=== PATIENT | female | born 1955 | race Asian ===

== ENCOUNTER → 2021-09-16 | Outpatient (CLI) | payer SELFPAY ==
[2021-09-16 21:08] LABS: BASOPHILS # (AUTO) 0.1 10^3/uL (0.0-0.1); BASOPHILS % (AUTO) 1.4 %; EOSINOPHILS # (AUTO) 0.1 10^3/uL (0.0-0.7); EOSINOPHILS % (AUTO) 1.4 %; HCT - HEMATOCRIT 42.7 % (37.0-47.0); HGB - HEMOGLOBIN 14.1 g/dL (12.0-16.0); LYMPHOCYTES # (AUTO) 1.1 10^3/uL (1.5-3.5); LYMPHOCYTES % (AUTO) 21.9 %; MEAN CORPUSCULAR VOLUME 96.8 fL (81.0-99.0); MONOCYTES # (AUTO) 0.4 10^3/uL (0.0-1.0); MONOCYTES % (AUTO) 7.6 %; NEUTROPHILS # (AUTO) 3.4 10^3/uL (1.5-6.6); NEUTROPHILS % (AUTO) 67.5 %; PLT - PLATELET COUNT 152 10^3/uL (130-450); RED BLOOD COUNT 4.41 10^6/uL (4.20-5.40); RED CELL DISTRIBUTION WIDTH 11.7 % (12.0-15.0)
[2021-09-16 21:19] LABS: ALBUMIN 4.5 g/dL (3.2-5.5); ALBUMIN/GLOBULIN RATIO 1.3 (1.0-2.2); BILIRUBIN,TOTAL 1.1 mg/dL (0.2-1.0); CALCIUM 9.3 mg/dL (8.5-10.3); CREATININE 0.9 mg/dL (0.4-1.0); POTASSIUM 4.2 mmol/L (3.5-5.0)
[2021-09-16 21:35] LABS: THYROID STIMULATING HORMONE 1.76 uIU/mL (0.34-5.60)
== END ==
LOC: LAB.N 08:00
PROVIDERS: ATTEND Family Medicine
DX: I10 Essential (primary) hypertension (principal); H53.9 Unspecified visual disturbance
CPT/HCPCS: 36415; 80053; 84443; 85025; 85651

== ENCOUNTER 2021-10-07 09:42 | Outpatient (CLI) | payer SELFPAY ==
--- NOTE | 2021-10-07 10:09 | XRAY Report ---
PROCEDURE: Chest 2 View X-Ray INDICATIONS: BRONCHITIS TECHNIQUE: 2 view(s) of the chest. COMPARISON: September 03, 2010. FINDINGS: SUPPORT DEVICES: None. LUNGS/PLEURA: Biapical pleural thickening/scarring. Airspace opacity in the left lower lung zone, con cerning for pneumonic infiltrate. Hyperaeration with coarsened interstitial markings. Evidence of ate lectasis. MEDIASTINUM: The cardiomediastinal silhouette is within normal limits. BONES/SOFT TISSUES: No acute abnormality. IMPRESSION: 1.Left lower lung zone airspace opacity, concerning for pneumonic infiltrate. Reviewed by: Abdirashid Ponce MD on 10/07/2021 10:08 AM PDT Approved by: Abdirashid Ponce MD on 10/07/2021 10:08 AM PDT Station ID: [id number]
== END 2021-10-07 23:59 | disposition home or self-care (01) ==
LOC: DI.N 09:42
PROVIDERS: ATTEND Physician Assistant Medical
DX: J40 Bronchitis, not specified as acute or chronic (principal); R91.8 Other nonspecific abnormal finding of lung field
CPT/HCPCS: 71046; U0004

== ENCOUNTER 2022-09-23 23:38 | Emergency (ER) | payer MEDICARE ==
[2022-09-24] MEDS ORDERED: SODIUM CHLORIDE 0.9% 1,000 ML IV STA (00:03)
--- NOTE | 2022-09-24 00:05 | ED Physician Documentation ---
History of Present Illness - Stated complaint Stated Complaint: CHEST PX - Chief complaint Chief Complaint: Cardiac - History obtained from History obtained from: Patient - Additonal information Additional information: The patient comes to the emergency department with chief complaint of palpitations. She states that she has some chronically and sometimes they are once a week and sometimes they are every day. She states that she has been seen for these before and told nobody can find anything wrong. The patient denies any recent illness. The palpitations are not associated with chest pain, sh ortness of breath, or nausea. Sometimes they last for just a few minutes and other times they last for hours. She states currently, she has been feeling as though she is having a fast heart rate for the last 4 hours. No other complaints at this time. The patient does not have any known history of any heart issues, rhythm related or otherwise. No history of diabetes or high blood pressure. No history of thyroid disorder. PD PAST MEDICAL HISTORY - Past Medical History Respiratory: None - Past Surgical History Past Surgical History: No - Present Medications Home Medications: Ambulatory Orders Medication Instructions Recorded Confirmed amLODIPine [Norvasc] 10 mg PO DAILY 09/23/22 09/23/22 Albuterol Sulf [Ventolin Hfa 1 - 2 puffs INH Q4HR PRN 09/24/22 09/24/22 Inhaler] Levothyroxine [Synthroid] 125 mcg PO QDAC #90 tablet 09/24/22 - Allergies Allergies/Adverse Reactions: Allergies Allergy/AdvReac Type Severity Reaction Status Date / Time No Known Drug Allergies Allergy Verified 09/23/22 23:50 - Social History Does the pt smoke?: No Smoking Status: Never smoker Does the pt drink ETOH?: No Does the pt have substance abuse?: No - Immunizations Immunizations are current?: Yes PD ED PE NORMAL - Vitals Vital signs reviewed: Yes - General General: Alert and oriented X 3, No acute distress, Well developed/nourished - HEENT HEENT: Atraumatic, PERRL, EOMI, Moist mucous membranes - Neck Neck: Supple, no meningeal sign, Thyroid normal - Cardiac Cardiac: RRR, No murmur, Strong equal pulses - Respiratory Respiratory: No respiratory distress, Clear bilaterally - Abdomen Abdomen: Soft, Non tender, Non distended - Derm Derm: Normal color, Warm and dry, No rash - Extremities Extremities: No deformity, No edema - Neuro Neuro: Alert and oriented X 3 - Psych Psych: Normal mood, Normal affect Results - Vitals Vitals: Vital Signs - 24 hr 09/23/22 09/24/22 09/24/22 23:40 00:07 01:16 Temperature 36.9 C Heart Rate 94 80 83 Respiratory 16 22 16 Rate Blood Pressure 204/73 H 172/77 H 165/70 H O2 Saturation 100 100 99 Oxygen O2 Source Room air - EKG (time done) 2352 EKG releavant findings:: EKG personally interpreted by author of this note. Relevant findings are: Rate: Rate (enter#) (93) Rhythm: NSR [place]: RAD QRS: LVH Ischemia: Non specific changes Other comments: Other comments (Computer reading states "right and left arm electrode reversal". Electrodes checked and are in proper placement.) Compare to prior EKG: Old EKG unavailable - Labs Labs: Laboratory Tests 09/23/22 09/23/22 09/23/22 23:56 23:56 23:56 WBC 5.8 RBC 4.48 Hgb 13.8 Hct 43.4 MCV 96.9 MCH 30.8 MCHC 31.8 L RDW 12.0 Plt Count 168 MPV 10.0 Neut # (Auto) 2.3 Lymph # (Auto) 2.9 [place] # (Auto) 0.5 Eos # (Auto) 0.1 Baso # (Auto) 0.1 Absolute Nucleated RBC 0.00 Nucleated RBC % 0.0 Sodium 136 Potassium 3.3 L Chloride 95 L Carbon Dioxide 31 Anion Gap 10.0 BUN 17 Creatinine 0.7 Estimated GFR (MDRD) 83 L Glucose 114 H Calcium 9.5 Total Bilirubin 0.4 AST 33 ALT 24 Alkaline Phosphatase 171 H Total Protein 8.6 H Albumin 4.6 Globulin 4.0 Albumin/Globulin Ratio 1.1 Lipase 39 TSH 7.37 H Free T4 Thyroxine (T4) Free T3 pg/mL Total T3 09/23/22 09/23/22 09/23/22 23:56 23:56 23:56 WBC RBC Hgb Hct MCV MCH MCHC RDW Plt Count MPV Neut # (Auto) Lymph # (Auto) [place] # (Auto) Eos # (Auto) Baso # (Auto) Absolute Nucleated RBC Nucleated RBC % Sodium Potassium Chloride Carbon Dioxide Anion Gap BUN Creatinine Estimated GFR (MDRD) Glucose Calcium Total Bilirubin AST ALT Alkaline Phosphatase Total Protein Albumin Globulin Albumin/Globulin Ratio Lipase TSH Free T4 0.86 Thyroxine (T4) 7.49 Free T3 pg/mL 3.57 3.58 Total T3 1.17 PD Medical Decision Making - ED course Complexity details: reviewed old records, reviewed results, re-evaluated patient, considered differential, d/w patient, d/w family ED course: The patient was well-appearing and her heart rate and rhythm were normal. I did work her up with labs including CBC and ER abdominal panel, as well as EKG, all of which were reviewed by me. The patient's labs in general looked pretty good but her TSH was significantly elevated. Although she has a normal sinus rhythm on EKG at this point in time, there is possible that she may be having some minor dysrhythmias from time to time. I will start her on Synthroid. We have discussed the heightened need for establishment with primary care and I have given her a couple of options. The patient understands she should make the soonest possible appointment for follow-up. We have discussed the usual indications for return. Departure - Departure Disposition: 01 Home, Self Care Clinical Impression: Palpitations with regular cardiac rhythm Hypothyroidism Qualifiers: Hypothyroidism type: unspecified Qualified Code(s): E03.9 - Hypothyroidism, unspecified Condition: Stable Instructions: ED Hypothyroidism, ED Palpitations Follow-Up: Neha Goyal ARNP [Provider Admit Priv/Credential] - Brigido Green MD [Provider Admit Priv/Credential] - Prescriptions: Levothyroxine [Synthroid] 125 mcg PO QDAC #90 tablet Comments: Your cardiac monitoring and EKG did not show any abnormal rhythm today. You had a normal heart rate and the rhythm was normal also. Your laboratory studies overall looked good but you were found to have indication of hypothyroidism or "low thyroid". Thyroid derangements in either direction can cause abnormal cardiac rhythms and this may be what you experienced. In any case, we will need to put you on thyroid hormone replacements is very important that you set up follow-up with primary care soon as possible to follow-up on both your palpitations and your hypothyroidism. Please make the next possible appointment with one of the options provided. The prescription for your medication has been electronically transmitted to the [facility] pharmacy in [place] at your request. Discharge Date/Time: 09/24/22 01:16
[2022-09-24 00:09] LABS: BASOPHILS # (AUTO) 0.1 10^3/uL (0.0-0.1); EOSINOPHILS # (AUTO) 0.1 10^3/uL (0.0-0.7); EOSINOPHILS % (AUTO) 1.7 %; HCT - HEMATOCRIT 43.4 % (37.0-47.0); HGB - HEMOGLOBIN 13.8 g/dL (12.0-16.0); LYMPHOCYTES # (AUTO) 2.9 10^3/uL (1.5-3.5); LYMPHOCYTES % (AUTO) 49.8 %; MEAN CORPUSCULAR HEMOGLOBIN 30.8 pg (27.0-31.0); MEAN CORPUSCULAR HGB CONC 31.8 g/dL (32.0-36.0); MEAN CORPUSCULAR VOLUME 96.9 fL (81.0-99.0); MONOCYTES # (AUTO) 0.5 10^3/uL (0.0-1.0); NEUTROPHILS # (AUTO) 2.3 10^3/uL (1.5-6.6); NEUTROPHILS % (AUTO) 39.3 %; PLT - PLATELET COUNT 168 10^3/uL (130-450); RED BLOOD COUNT 4.48 10^6/uL (4.20-5.40); WHITE BLOOD COUNT 5.8 x10^3/uL (4.8-10.8)
[2022-09-24 00:29] LABS: ALBUMIN 4.6 g/dL (3.2-5.5); ALBUMIN/GLOBULIN RATIO 1.1 (1.0-2.2); BILIRUBIN,TOTAL 0.4 mg/dL (0.2-1.0); CALCIUM 9.5 mg/dL (8.5-10.3); CREATININE 0.7 mg/dL (0.4-1.0); POTASSIUM 3.3 mmol/L (3.5-5.0); TOTAL PROTEIN 8.6 g/dL (6.7-8.2)
[2022-09-24 01:17] VITALS: BP 165/70
[2022-09-24 01:57] LABS: T4 (THYROXINE) 7.49 ug/dL (6.09-12.23)
[2022-09-24 02:01] LABS: FREE T3 3.57 pg/mL (2.5-3.9)
[2022-09-24 02:03] LABS: FREE T4 (FREE THYROXINE) 0.86 ng/dL (0.58-1.64)
== END 2022-09-24 01:16 | disposition home or self-care (01) ==
LOC: ED 23:38
DX: R00.2 Palpitations (principal); E03.9 Hypothyroidism, unspecified
CPT/HCPCS: 36415; 80053; 83690; 84436; 84439; 84443; 84480; 84481; 85025; 93005; 99284